=== PATIENT | female | born 1970 ===

== ENCOUNTER 2017-12-28 04:55 | Emergency (ER) | payer MEDICAID ==
[~2017-12-28] VITALS: Ht 139.7 cm; Wt 51.6 kg
[2017-12-28] MEDS ORDERED: IBUPROFEN 800MG TABLET PO ONE (06:30)
[2017-12-28 07:26] LABS: CLARITY URINE CLEAR (CLEAR); COLOR URINE YELLOW (YELLOW); KETONES URINE NEGATIVE (NEGATIVE); LEUKOCYTE ESTERASE URINE 2+ (NEGATIVE); NITRITE URINE NEGATIVE (NEGATIVE); OCCULT BLOOD URINE NEGATIVE (NEGATIVE); PH URINE 6.5 (4.5-8.0); PROTEIN URINE NEGATIVE (NEGATIVE); SPECIFIC GRAVITY URINE 1.017 (1.005-1.030)
[2017-12-28 10:41] VITALS: BP 122/74
== END 2017-12-28 10:42 | disposition home or self-care (01) ==
LOC: ER 04:55
DX: S20.212A Contusion of left front wall of thorax, initial encounter (principal); N39.0 Urinary tract infection, site not specified; J45.909 Unspecified asthma, uncomplicated; F17.200 Nicotine dependence, unspecified, uncomplicated; F14.10 Cocaine abuse, uncomplicated; Z88.0 Allergy status to penicillin; V13.0XXA Pedal cycle driver injured in collision with car, pick-up truck or van in nontraffic accident, initial encounter; Y93.89 Activity, other specified; Y92.89 Other specified places as the place of occurrence of the external cause; Y99.8 Other external cause status
CPT/HCPCS: 71101; 81003; 81025; 87086; 99285; Z7610